=== PATIENT | female | born 2000 | race Caucasian/White ===

== ENCOUNTER 2021-10-17 16:56 | Emergency (ER) | payer OTHER ==
[~2021-10-17] VITALS: Ht 162.6 cm; Wt 61.4 kg
[2021-10-17 17:12] VITALS: BP 153/86
[2021-10-17] MEDS ORDERED: FAMOTIDINE 20 MG TABLET PO ONE (18:00)
[2021-10-17] MEDS ORDERED: DEXAMETHASONE SOD PHOS 10 MG/ML VIAL. PO ONE (18:00)
[2021-10-17] MEDS ORDERED: diphenhydrAMINE HCL 25 MG CAPSULE PO ONE (18:00)
--- NOTE | 2021-10-17 18:27 | PHYS DOC ---
Past History Additional Past Medical Histor: Hashimotos (TAMANNA MOLINA APRN) Past Surgical History: No Surgical History (TAMANNA MOLINA APRN) Alcohol Use: Occasionally (TAMANNA MOLINA APRN) General Adult EDM: Chief Complaint: ALLERGIC REACTION HPI: HPI: Patient is a 21-year-old female that presents today with a rash on her neck and on her arms. Patient states [place] was [place] in [place] on Wednesday setting up a deer stand and she broke out in a rash later on that day she was placed on a steroid Dosepak on Wednesday and today the rash still continues to worsen. Patient states it is itchy, she has no shortness of air or swelling of the lips reported. Patient took 1 dose of Benadryl today and slept through the day but has not been taking it regularly (TAMANNA MOLINA APRN) Review of Systems: Review of Systems: Constitutional: Denies fever or chills Eyes: Denies change in visual acuity HENT: Denies nasal congestion or sore throat Respiratory: Denies cough or shortness of breath Cardiovascular: Denies chest pain or edema GI: Denies abdominal pain, nausea, vomiting, bloody stools or diarrhea : Denies dysuria Musculoskeletal: Denies back pain or joint pain Integument: Rash on neck upper chest and arms and hands Neurologic: Denies headache, focal weakness or sensory changes Endocrine: Denies polyuria or polydipsia Lymphatic: Denies swollen glands Psychiatric: Denies depression or anxiety (TAMANNA MOLINA APRN) Current Medications: Current Meds: Current Medications Medications (Trade) Dose Ordered Sig/Deepika Start Time Stop Time Status Last Admin Dose Admin Dexamethasone Sodium Phosphate (Decadron) 10 mg 1X ONCE 10/17/21 18:00 10/17/21 18:08 DC 10/17/21 18:08 10 MG Diphenhydramine HCl (Benadryl) 50 mg 1X ONCE 10/17/21 18:00 10/17/21 18:08 DC 10/17/21 18:09 50 MG Famotidine (Pepcid) 20 mg 1X ONCE 10/17/21 18:00 10/17/21 18:08 DC 10/17/21 18:08 20 MG (TAMANNA MOLINA RELIGIOUS ACTIVITIES DIRECTOR) Allergies: Allergies: Allergies Coded Allergies Type Severity Reaction Last Updated Verified No Known Drug Allergies 10/17/21 No (TAMANNA MOLINA APRN) Physical Exam: PE: Constitutional: Well developed, well nourished, no acute distress, non-toxic appearance. [] HENT: Normocephalic, atraumatic, bilateral external ears normal, oropharynx moist, no oral exudates, nose normal. [] Eyes: PERRLA, EOMI, conjunctiva normal, no discharge. [] Neck: Normal range of motion, no tenderness, supple, no stridor. Raise your urticarial rash noted on the neck and upper chest Cardiovascular:Heart rate regular rhythm, no murmur [] Lungs & Thorax: Bilateral breath sounds clear to auscultation [] Abdomen: Bowel sounds normal, soft, no tenderness, no masses, no pulsatile masses. [] Skin: Warm, dry, no erythema, linear vesicles noted on the hands left hand, he had a raised hives rash noted on the neck and on the arms as well [] Back: No tenderness, no CVA tenderness. [] Extremities: No tenderness, no cyanosis, no clubbing, ROM intact, no edema. [] Neurologic: Alert and oriented X 3, normal motor function, normal sensory function, no focal deficits noted. [] Psychologic: Affect normal, judgement normal, mood normal. [] (TAMANNA MOLINA APRN) Current Patient Data: Vital Signs: Vital Signs Date Time Temp Pulse Resp B/P (MAP) Pulse Ox O2 Delivery O2 Flow Rate FiO2 10/17/21 17:12 97.8 85 18 153/86 (108) 100 Room Air (TAMANNA MOLINA APRN) EKG: EKG: [] (TAMANNA MOLINA APRN) Radiology/Procedures: Radiology/Procedures: [] (TAMANNA MOLINA APRN) Heart Score: C/O Chest Pain: N/A Risk Factors: Risk Factors: DM, Current or recent (<one month) smoker, HTN, HLP, family history of CAD, obesity. Risk Scores: Score 0 - 3: 2.5% MACE over next 6 weeks - Discharge Home Score 4 - 6: 20.3% MACE over next 6 weeks - Admit for Clinical Observation Score 7 - 10: 72.7% MACE over next 6 weeks - Early Invasive Strategies (TAMANNA MOLINA APRN) Course & Med Decision Making: Course & Med Decision Making Pertinent Labs and Imaging studies reviewed. (See chart for details) We will give patient a dose of Decadron 10 mg, Benadryl 50 mg, and Pepcid 20 mg, here in the emergency department. Will instruct patient to take Benadryl jfcw-kje-smkynik every 6 hours 50 mg for the next 48 hours, continue with steroid Dosepak, and take Pepcid jfoj-mys-abqrehu 20 mg every 12 hours for the next 48 hours. Follow-up with one of the primary care physicians noted in the referral area of your discharge instructions for follow-up. Return to the emergency department if increased swelling of the face or lips is noted, increased shortness of breath or inability to get air, or you start running a fever. ] (TAMANNA MOLINA APRN) Dragon Disclaimer: Dragon Disclaimer: This electronic medical record was generated, in whole or in part, using a voice recognition dictation system. (TAMANNA MOLINA APRN) Departure Departure: Impression: Primary Impression: Urticaria Disposition: 01 HOME / SELF CARE / HOMELESS Condition: STABLE Referrals: PCPTALI (PCP) ROSETTE BURKS Patient Instructions: Hives Additional Instructions: Continue with steroid Dosepak at home Evos-wad-qtzwmuy Pepcid 20 mg every 12 hours for the next 48 hours your first dose was here in the emergency department at 6 PM Xkxz-nmg-faoczst Benadryl 50 mg every 6 hours for the next 48 hours your first dose was here in the emergency department at 6 PM Return to the emergency department for increased facial swelling or increased shortness of breath, or rash worsens Attending Signature Attending Signature I have participated in the care of this patient and I have reviewed and agree with all pertinent clinical information above including history, exam, and recommendations. (JOSE HERRON MD) TAMANNA MOLINA APRN Oct 17, 2021 18:27 JOSE HERRON MD Oct 19, 2021 20:23
== END 2021-10-17 18:37 | disposition home or self-care (01) ==
LOC: ER 16:56
DX: L50.9 Urticaria, unspecified (principal)
CPT/HCPCS: 99284; J1100; Q0163